=== PATIENT | male | born 1950 | race Caucasian/White ===

== ENCOUNTER 2018-12-08 10:09 | Outpatient (CLI) | payer MEDICARE, BC, SELFPAY ==
[2018-12-08 13:01] LABS: Anion Gap 12.7 mmol/L (3-11); BUN 16 mg/dL (7-18); CO2 26.3 mmol/L (21.0-32.0); CREATININE 0.77 mg/dL (0.70-1.30); Calcium 9.2 mg/dL (8.5-10.1); Chloride 100 mmol/L (98-107); Glucose 109 mg/dL (70-100); Potassium 4.3 mmol/L (3.5-5.1); Sodium 139 mmol/L (136-145)
[2018-12-09 10:17] LABS: PSA, Screening 1.3 ng/ml (0-4.5)
== END 2018-12-08 10:29 ==
PROVIDERS: PCP Emergency Medicine; Visit Provider Emergency Medicine
DX: I10 Essential (primary) hypertension (principal); Z12.5 Encounter for screening for malignant neoplasm of prostate
CPT/HCPCS: 36415; 80048; 84153

== ENCOUNTER 2019-04-14 09:43 | Outpatient (CLI) | payer MEDICARE, BC, SELFPAY ==
[2019-04-14 11:15] LABS: HCT 43.5 % (40.0-50.0); Mean Corp. HGB Concentration 34.5 g/dL (32.0-36.0); Mean Corpuscular Hemoglobin 30.5 pg (27.0-33.0); Mean Corpuscular Volume 88.4 fL (80-95); Mean Platelet Volume 11.1 fL (8.0-11.0); Platelet Count 249 x1000/uL (130-400); RBC 4.92 m/cumm (4.50-6.00); RBC Distribution Width 13.4 % (11.8-14.1); White Blood Cell Count 4.97 k/cumm (4.4-10.8)
[2019-04-14 11:44] LABS: ALT 37 U/L (16-63); AST 24 U/L (15-37); Albumin 3.9 g/dL (3.4-5.0); Alkaline Phosphatase 54 U/L (46-116); Anion Gap 10.7 mmol/L (3-11); BUN 23 mg/dL (7-18); Bilirubin, Total 0.5 mg/dL (0.2-1.0); CO2 27.3 mmol/L (21.0-32.0); CREATININE 0.87 mg/dL (0.70-1.30); Calcium 9.9 mg/dL (8.5-10.1); Calculated LDL 118 mg/dL; Chloride 101 mmol/L (98-107); Cholesterol 198 mg/dL (50-200); Glucose 115 mg/dL (70-100); HDL Cholesterol 70 mg/dL (40-60); Potassium 4.3 mmol/L (3.5-5.1); Sodium 139 mmol/L (136-145); TSH 2.41 uIU/mL (0.36-3.74); Total Protein 8.3 g/dL (6.4-8.2); Triglyceride 50 mg/dL (30-150)
[2019-04-15 11:34] LABS: Hepatitis C Ab w Rflx HCV PCR Negative (NEGAT)
== END 2019-04-14 10:03 ==
PROVIDERS: PCP Emergency Medicine; Visit Provider Emergency Medicine
DX: E03.9 Hypothyroidism, unspecified (principal); R53.83 Other fatigue; K57.32 Diverticulitis of large intestine without perforation or abscess without bleeding; Z11.59 Encounter for screening for other viral diseases
CPT/HCPCS: 36415; 80053; 80061; 85027; 86803; 84443

== ENCOUNTER 2019-04-19 01:29 | Outpatient (CLI) | payer MEDICARE, BC, SELFPAY ==
--- NOTE | 2019-04-19 06:39 | DI.US_ITS ---
EXAM: US AAA SCREENING CLINICAL HISTORY: SCREENING FOR AAA, Z13.6 TECHNIQUE: Ultrasound performed using standard protocol. COMPARISON: No exams were available for comparison FINDINGS: The proximal aorta measures 2.8 cm in diameter. No aneurysm is seen. The proximal iliac arteries a lso appear normal in diameter. IMPRESSION: No evidence of abdominal aortic aneurysm.
== END 2019-04-19 01:49 ==
PROVIDERS: PCP Emergency Medicine; Visit Provider Emergency Medicine
DX: Z13.6 Encounter for screening for cardiovascular disorders (principal)
CPT/HCPCS: 76706

== ENCOUNTER 2020-04-28 11:09 | Outpatient (REF) | payer MEDICARE, BC, SELFPAY ==
[2020-04-28 13:48] LABS: Anion Gap 10.3 mmol/L (3-11); BUN 19 mg/dL (7-18); CO2 26.7 mmol/L (21.0-32.0); CREATININE 0.79 mg/dL (0.70-1.30); Calcium 8.7 mg/dL (8.5-10.1); Chloride 100 mmol/L (98-107); Glucose 108 mg/dL (74-106); Potassium 4.2 mmol/L (3.5-5.1); Sodium 137 mmol/L (136-145)
== END 2020-04-28 11:29 ==
LOC: LBN 11:09
PROVIDERS: PCP Emergency Medicine; Visit Provider Emergency Medicine
DX: I10 Essential (primary) hypertension (principal)
CPT/HCPCS: 80048

== ENCOUNTER 2021-05-02 03:36 | Outpatient (CLI) | payer MEDICARE, BC, SELFPAY ==
[2021-05-02 08:27] LABS: Anion Gap 9.3 mmol/L (3-11); BUN 17 mg/dL (7-18); CO2 28.7 mmol/L (21.0-32.0); CREATININE 0.8 mg/dL (0.70-1.30); Calcium 8.7 mg/dL (8.5-10.1); Calculated LDL 127 mg/dL (<100); Chloride 99 mmol/L (98-107); Cholesterol 206 mg/dL (<200); Glucose 121 mg/dL (74-106); HDL Cholesterol 70 mg/dL (40-60); Potassium 4.2 mmol/L (3.5-5.1); Sodium 137 mmol/L (136-145); Triglyceride 48 mg/dL (<150)
== END 2021-05-02 03:37 | disposition home or self-care (01) ==
LOC: LBO 03:36
PROVIDERS: PCP Emergency Medicine; Visit Provider Emergency Medicine
DX: I10 Essential (primary) hypertension (principal)
CPT/HCPCS: 36415; 80048; 80061

== ENCOUNTER 2021-05-14 02:30 | Outpatient (CLI) | payer MEDICARE, BC, SELFPAY ==
[2021-05-14 11:09] LABS: Hemoglobin A1C 5.9 % (<5.7)
== END 2021-05-14 02:31 | disposition home or self-care (01) ==
LOC: LBO 02:31
PROVIDERS: PCP Emergency Medicine; Visit Provider Emergency Medicine
DX: R73.9 Hyperglycemia, unspecified (principal)
CPT/HCPCS: 36415; 83036

== ENCOUNTER → 2022-05-13 02:27 | Outpatient (CLI) | payer MEDICARE, SELFPAY ==
--- NOTE | 2022-05-13 07:15 | DI.RAD_ITS ---
Exam(s) RF BARIUM SWALLOW EXAM: RF BARIUM SWALLOW CLINICAL HISTORY: halitosis, normal oral exam,r19.6 TECHNIQUE: 2D and realtime digital imaging was performed. CONTRAST MATERIAL: Thick and thin barium and barium tablet were administered. COMPARISON: CR RIGHT RIBS TO INCLUDE CXR from 12/05/2012 CR LEFT SHOULDER COMPLETE from 04/03/2016 FINDINGS: Lateral powertrain engineer view neck shows degenerative disc changes and facet degenerative changes. The PA and l ateral views of the chest show normal heart size and clear lung navarrete. The patient swallowed barium without difficulty. There was no aspiration or laryngeal penetration ob served during the exam. There is a prominent cricopharyngeus muscle impression. There is a tiny Biju ker's diverticulum. There prominent tertiary contractions in the mid to lower esophagus with a few f ocal diverticula. There is a small sliding hiatal hernia. Gastroesophageal reflux was observed to t he level of the upper esophagus. The barium tablet passed into the stomach without delay. No eviden ce of ulceration or stricture. The visualized portions of the stomach and duodenum are unremarkable. Fluoro time 57 seconds IMPRESSION: Prominent tertiary contractions. Sliding hiatal hernia and gastroesophageal reflux. RADIATION DOSE DELIVERED: bebo Diggs=18.3 mGy
[2022-05-13] MEDS: Barium Sulfate 60% W/V 355 ML BTL PO (09:27)
[2022-05-13] MEDS: Barium Sulfate 700 MG TAB PO (09:28)
[2022-05-13] MEDS: Simethicone/Sod Bicarb/Cit Ac, 4 gram PACKET 1 PACKET PO (09:29)
== END ==
PROVIDERS: PCP Family Medicine; Visit Provider Family Medicine
DX: R19.6 Halitosis (principal); K21.9 Gastro-esophageal reflux disease without esophagitis; K44.9 Diaphragmatic hernia without obstruction or gangrene; K22.4 Dyskinesia of esophagus
CPT/HCPCS: 74221

== ENCOUNTER 2022-05-29 02:54 | Outpatient (CLI) | payer MEDICARE, SELFPAY ==
[2022-05-29 11:41] LABS: Abs Immature Grans 0.01 10^3/uL (0.0-0.06); Absolute Basophil Count 0.04 10^3/uL (0.0-0.2); Absolute Eosinophil Count 0.05 10^3/uL (0.0-0.7); Absolute Lymphocyte Count 2.19 10^3/uL (1.2-3.4); Absolute Monocyte Count 0.58 10^3/uL (0.1-0.8); Basophils % 0.8; HCT 43.3 % (40.0-50.0); HGB 14.9 g/dL (13.5-17.5); Immature Grans % 0.2; Lymphocytes % 42.4; MCH 30.4 pg (27.0-33.0); MCHC 34.4 % (32.0-36.0); MCV 88 fL (80-95); MPV 10.3 fL (8.0-11.0); Monocytes % 11.2; Neutrophils % 44.4; Platelet Count 216 10^3/uL (130-400); RDW 12.9 % (11.8-14.1); RDW-SD 42.2 fL; WBC 5.17 10^3/uL (4.4-10.8)
[2022-05-29 12:09] LABS: ALT 33 U/L (16-63); AST 24 U/L (15-37); Albumin 3.5 g/dL (3.4-5.0); Alkaline Phosphatase 57 U/L (46-116); Anion Gap 7.1 mmol/L (3-11); BUN 18 mg/dL (7-18); Bilirubin, Total 0.6 mg/dL (0.2-1.0); CO2 29.9 mmol/L (21.0-32.0); CREATININE 0.8 mg/dL (0.70-1.30); Chloride 100 mmol/L (98-107); Estimated GFR 94.62 (mL/min/1.73m2); Glucose 112 mg/dL (74-106); Potassium 4.4 mmol/L (3.5-5.1); Sodium 137 mmol/L (136-145); Total Protein 8.3 g/dL (6.4-8.2)
== END 2022-05-29 02:55 | disposition home or self-care (01) ==
LOC: LBO 02:54
PROVIDERS: PCP Family Medicine; Visit Provider Family Medicine
DX: R19.6 Halitosis (principal); Z00.00 Encounter for general adult medical examination without abnormal findings
CPT/HCPCS: 36415; 80053; 85025

== ENCOUNTER 2022-06-04 02:13 | Outpatient (CLI) | payer MEDICARE, SELFPAY ==
[2022-06-05 10:49] LABS: Kappa Free Light Chain 4.12 mg/dL (0.33-1.94); Lambda Free Light Chain 0.72 mg/dL (0.57-2.63)
[2022-06-05 13:29] LABS: Albumin 52.5 % (55.8-66.1); Albumin g/dL 4.4 g/dL (3.6-5.2); Comment (See Note); Monoclonal Spike 22.1 % (None Seen); Monoclonal Spike g/dL 1.8 g/dL (None Seen); Total Protein 8.3 g/dL (6.3-8.2)
[2022-06-05 15:17] LABS: Immunotyping, Serum (See Note)
[2022-06-05 15:20] LABS: Albumin, Urine % 19.5 %; Albumin, Urine mg/dL 2 mg/dL; Globulins, Urine % 80.5 %; Globulins, Urine mg/dL 7 mg/dL; Immunotyping, Urine (See Note); Monoclonal Spike, Urine 8.4 %; Monoclonal Spike, Urine mg/dL 1 mg/dL; Total Protein Urine 9 mg/dL (See Note)
== END 2022-06-04 02:14 | disposition home or self-care (01) ==
PROVIDERS: PCP Family Medicine; Visit Provider Family Medicine
DX: R63.8 Other symptoms and signs concerning food and fluid intake (principal)
CPT/HCPCS: 36415; 84156; 84166; 86335; 83883; 84165; 86320

== ENCOUNTER → 2022-07-01 08:54 | Outpatient (BNVA) | payer MEDICARE, SELFPAY | PROVIDERS: PCP Family Medicine; Referring Provider Family Medicine; Visit Provider Physical Therapy Assistant | DX: R19.6 Halitosis (principal); K22.5 Diverticulum of esophagus, acquired | CPT/HCPCS: 99203 ==

== ENCOUNTER 2023-05-23 09:03 | Outpatient (CLI) | payer MEDICARE, SELFPAY ==
[2023-05-23 12:39] LABS: ALT 34 U/L (16-63); AST 25 U/L (15-37); Albumin 3.5 g/dL (3.4-5.0); Alkaline Phosphatase 54 U/L (46-116); Anion Gap 10.4 mmol/L (3-11); BUN 24 mg/dL (7-18); Bilirubin, Total 0.7 mg/dL (0.2-1.0); CO2 28.6 mmol/L (21.0-32.0); Calcium 9.2 mg/dL (8.5-10.1); Calculated LDL 98 mg/dL (<100); Chloride 102 mmol/L (98-107); Cholesterol 172 mg/dL (<200); Estimated GFR 79.97 (mL/min/1.73m2); Glucose 126 mg/dL (74-106); HDL Cholesterol 62 mg/dL (40-60); Potassium 3.7 mmol/L (3.5-5.1); Sodium 141 mmol/L (136-145); Total Protein 8.4 g/dL (6.4-8.2); Triglyceride 63 mg/dL (<150)
== END 2023-05-23 09:04 | disposition home or self-care (01) ==
LOC: LOS 09:03
PROVIDERS: PCP Family Medicine; Referring Provider Family Medicine; Visit Provider Family Medicine
DX: I10 Essential (primary) hypertension (principal); Z13.6 Encounter for screening for cardiovascular disorders; Z00.00 Encounter for general adult medical examination without abnormal findings
CPT/HCPCS: 36415; 80053; 80061

== ENCOUNTER 2023-08-23 13:22 | Emergency (ER) | payer MEDICARE, SELFPAY ==
[2023-08-23 13:30] VITALS: BP 157/109; PULSE 81; RESP 16; TEMP 36.5; O2SAT 97
--- NOTE | 2023-08-23 13:43 | ED.GENADUL_ITS ---
Discharge Plan Disposition Patient Disposition: Home Discharge Details Clinical Impression: Dog bite of buttock Primary Care Provider: Karrei Castillo ED Provider: Colin Paige Home Meds and New Rx's Prescriptions: New amoxicillin-pot clavulanate 875-125 mg tablet 1 tab PO Q12H 3 Days Qty: 6 0RF Continued pravastatin 20 mg tablet 20 mg PO DAILY Qty: 90 3RF losartan-hydrochlorothiazide 100-25 mg tablet 1 tab PO DAILY Qty: 90 3RF acetaminophen [Tylenol Extra Strength] 500 MG tablet 1,000 mg PO bid prn ibuprofen 200 MG capsule 200 mg PO PRN Discharge Instructions Instructions: Animal Bite (ED) Additional Instructions: Please continue to monitor for any signs of infection and return immediately for any signs of infection. Please continue to perform wound care Return to the emergency department immediately if you change your mind on rabies prophylaxis or if you find that the dog is not vaccinated. Referrals: Karrie Castillo MD [Primary Care Provider] - None (As needed ) Discharge Data Discharge Date/Time-TO BE ENTERED AT DEPARTURE: 08/23/23 14:11 HPI General Mode of arrival: ambulatory . Date/Time Provider Initiated Documentation: 08/23/23 13:23 . Limitations to Documentation: no limitations . Information obtained by: patient, family and RN notes reviewed . History of Present Illness 72 year old M presents to the emergency department with the chief complaint of dog bit left buttock, described as moderate, Patient started experiencing this hour(s) (1) Patient notes no other symptoms.. Patient did receive the following treatments prior to arrival, none Related Data Home Medications Medication Instructions Recorded Confirmed ibuprofen 200 mg capsule 200 mg PO PRN 12/05/12 08/23/23 acetaminophen 500 mg tablet 1,000 mg PO bid prn 04/05/13 08/23/23 (Tylenol Extra Strength) losartan 100 1 tab PO DAILY #90 tabs 05/23/23 08/23/23 mg-hydrochlorothiazide 25 mg tablet pravastatin 20 mg tablet 20 mg PO DAILY #90 tab-caps 05/23/23 08/23/23 amoxicillin 875 mg-potassium 1 tab PO Q12H 3 days #6 tabs 08/23/23 clavulanate 125 mg tablet Previous Rx's Medication Instructions Recorded losartan 100 1 tab PO DAILY #90 tabs 05/23/23 mg-hydrochlorothiazide 25 mg tablet pravastatin 20 mg tablet 20 mg PO DAILY #90 tab-caps 05/23/23 amoxicillin 875 mg-potassium 1 tab PO Q12H 3 days #6 tabs 08/23/23 clavulanate 125 mg tablet Allergies Allergy/AdvReac Type Severity Reaction Status Date / Time influenza virus vaccine qs AdvReac systemic Verified 08/23/23 13:29 [id number] (36 mos, up) reaction [From Fluarix Quad] General Stated Complaint: AnimalBite SINGH: 4 Review of Systems Musculoskeletal Musculoskeletal: Denies deformity, Denies limited range of motion, Denies muscle cramps and Denies radiating pain into limb Integumentary/Breasts Skin/Breast: Reports as per HPI, Reports skin swelling, Reports unusual bruising and Reports wounds Exam Const General: cooperative, no acute distress and not ill appearing Orientation: alert, awake and oriented x3 HENMT Mouth: moist mucous membranes Resp Effort & Inspection: normal respiratory effort, able to speak in complete sentences and no respiratory distress Cardio Rate: regular rate Rhythm: regular rhythm Back/Spine/Pelvis Pelvis: buttock ecchymosis and other (Dog bite with hematoma to left buttock) Coccyx: other (Dog bite with hematoma to left buttock) Skin General skin exam: no rashes or lesions noted Neuro General: patient alert, patient awake, patient oriented x3, moves all extremities and no focal motor deficits Sensory Exam: no sensory deficits noted Course Vital Signs Vital signs: Vital Signs Temperature 36.5 C 08/23/23 13:30 Pulse 81 08/23/23 13:30 Respiratory Rate 16 08/23/23 13:30 Blood Pressure 157/109 H 08/23/23 13:30 Pulse Oximetry 97 08/23/23 13:30 Temperature 36.5 C 08/23/23 13:30 Temperature Source Temporal Artery Scan 08/23/23 13:30 Pulse 81 08/23/23 13:30 Respiratory Rate 16 08/23/23 13:30 Respiratory Effort Normal, Non-Labored 08/23/23 13:31 Blood Pressure 157/109 H 08/23/23 13:30 Blood Pressure Position Sitting 08/23/23 13:30 Pulse Oximetry 97 08/23/23 13:30 Oxygen Delivery Method Room Air 08/23/23 13:30 Oxygen Flow Rate 0 03/09/24 13:30 Pain Level 3 08/23/23 13:30 Medical Decision Making Patient presenting to the emergency department for chief complaint of dog bite. Patient reports that he was riding his bicycle when to Portuguese Espino started to matilde him 1 biting him on the left buttock. He states that his clothing was intact but does state significant swelling and some puncture wounds noted. Patient states he is not up-to-date on tetanus, states that the insurance agency owner reported that the dogs were domesticated and up-to-date on rabies. Patient denies all other complaints. Patient is ambulatory, has moderate hematoma and dog bite with surrounding ecchymosis to the left buttock on the lower lateral portion. Exam is otherwise noncontributory. Acute wound care was provided, tetanus updated, did discuss risk and benefit of rabies vaccination with patient and patient at this time denied vaccination. Given dog bite will give short after discussion of diagnosis and plan of care patient has no further needs, questions, or concerns and states clear understanding to return to the emergency department for any worsening symptoms. Course of antibiotics and patient to monitor for further signs of infection. This documentation was generated using [employer] dictation system, please disregard any oddities of phrase or misspellings. Quality:SDOH Health Related Social Needs: No Data to Display PFSH All Active Problems Dog bite of buttock (Acute) Monoclonal gammopathy of undetermined significance (Chronic ~05/2022) negative bone marrow biopsy and PET scan; found on elev total protein on CMP; planned hematology eval every 5 years per patient. Hyperlipemia, mixed (Chronic) Generalized osteoarthrosis (Acute) left knee, fingers Essential hypertension (Chronic 04/02/13) Benign prostatic hyperplasia (Chronic) 2x/nocturia Medical History Zenkers diverticulum Diverticulitis of colon (without mention of hemorrhage) (05/15/06) pandiverticulosis on colonoscopy 2016 [place] Surgical History S/P knee replacement S/P cataract extraction H/O inguinal hernia repair (09/16/17) Family History Mother , age 89 No problems noted. Father , age 95 Essential hypertension Stroke Sister No problems noted. Sister , age 70; organ failure Breast cancer Brother No problems noted. Brother No problems noted. Brother No problems noted. Son No problems noted. Maternal Grandfather , age 85 No problems noted. Paternal Grandfather , age 65 No problems noted. Maternal Grandmother , age 92 No problems noted. Paternal Grandmother , age 95 No problems noted. Social History Smoking/Tobacco Use Status: Former Tobacco Use tobacco type: cigarettes Quit Date: 06/16/88 Tobacco: How many years used: 15 Second Hand Exposure: No Smoking risk assessment performed?: Yes Alcohol Intake: current Alcohol Intake frequency: a few times a week Alcohol type: beer and wine Drug use: Never Substance use type: does not use Counseling given: No Counseling provided: none Adopted: No Caregiver/Support person: No Foster care: No Household members: spouse Housing: house Number of Children: 1 number of grandchildren: 0 Education Level: high school Do you need help understanding health information?: Never current occupation: Retired builder Pets and animals: Yes Pets and animals: dog(s) Sexually active: Yes Do you think of yourself as: straight/heterosexual Current gender identity: male What is your relationship status?: How often do you talk on the phone with friends or family?: once per week How often do you get together with friends or relatives?: once per week How often do you attend hoahaoism or yazdanism services?: 1-3 times per year Do you belong to any clubs or organized social groups?: yes Panel score (0-1 are the most socially isolated patients): 2 What type of physical activity do you participate in: bicycling and other Details: Ski Duration: 45-60 minutes/day Frequency: 1-2 times per week Josselin/Worship: Christianity Special josselin needs: No Seatbelt use: always Helmet use: Yes Helmet use: always Drive intox or ride w/intox 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
[2023-08-23] MEDS: Amoxicillin 875/Clav. 125 TAB PO (14:02)
== END 2023-08-23 14:11 | disposition home or self-care (01) ==
LOC: ER 14:05
PROVIDERS: Emergency Provider Nurse Practitioner Family; PCP Family Medicine
DX: S31.825A Open bite of left buttock, initial encounter (principal); W54.0XXA Bitten by dog, initial encounter
CPT/HCPCS: 90715; 99283

== ENCOUNTER 2023-08-26 13:04 | Emergency (ER) | payer MEDICARE, SELFPAY ==
[2023-08-26 13:07] VITALS: BP 198/105; PULSE 61; RESP 16; TEMP 36.7; O2SAT 97
--- NOTE | 2023-08-26 13:25 | W.ED.GENAD ---
Discharge Plan Disposition Patient Disposition: Home Condition: Stable Discharge Details Clinical Impression: Dog bite of buttock Primary Care Provider: Karrie Castillo ED Provider: Lei Silverman Home Meds and New Rx's Prescriptions: Continued pravastatin 20 mg tablet 20 mg PO DAILY Qty: 90 3RF losartan-hydrochlorothiazide 100-25 mg tablet 1 tab PO DAILY Qty: 90 3RF acetaminophen [Tylenol Extra Strength] 500 MG tablet 1,000 mg PO bid prn ibuprofen 200 MG capsule 200 mg PO PRN Discharge Instructions Additional Instructions: Your wound appears well-healing. No signs of infection You should return for 3 more vaccines with the infusion room If you feel more ill, have severe worsening pain or fevers return to the emergency department HPI General Mode of arrival: ambulatory. Date/Time Provider Initiated Documentation: 08/26/23 13:09. Limitations to Documentation: no limitations. Information obtained by: patient. History of Present Illness 72 year old M presents to the emergency department with the chief complaint of dog bite 3 days ago, described as mild, Quality is described as aching, Patient started experiencing this day(s) (3) and it has been constant. No relieving factors improve symptom(s), No exacerbating factors reported . Patient notes no other symptoms.. Patient did receive the following treatments prior to arrival, none Related Data Home Medications Medication Instructions Recorded Confirmed ibuprofen 200 mg capsule 200 mg PO PRN 12/05/12 08/26/23 acetaminophen 500 mg tablet 1,000 mg PO bid prn 04/05/13 08/26/23 (Tylenol Extra Strength) losartan 100 1 tab PO DAILY #90 tabs 05/23/23 08/26/23 mg-hydrochlorothiazide 25 mg tablet pravastatin 20 mg tablet 20 mg PO DAILY #90 tab-caps 05/23/23 08/26/23 Previous Rx's Medication Instructions Recorded losartan 100 1 tab PO DAILY #90 tabs 05/23/23 mg-hydrochlorothiazide 25 mg tablet pravastatin 20 mg tablet 20 mg PO DAILY #90 tab-caps 05/23/23 Allergies Allergy/AdvReac Type Severity Reaction Status Date / Time influenza virus vaccine qs AdvReac systemic Verified 08/26/23 13:11 [id number] (36 mos, up) reaction [From Fluarix Quad] General Stated Complaint: AnimalBite SINGH: 4 Review of Systems All systems reviewed & are unremarkable except as noted in HPI and below Constitutional Constitutional: Denies chills, Denies fever(s) and Denies weakness Cardiovascular Cardiovascular: Denies chest pain and Denies dyspnea Respiratory Respiratory: Denies cough and Denies dyspnea Gastrointestinal Gastrointestinal: Denies abdominal pain, Denies nausea and Denies vomiting Musculoskeletal Musculoskeletal: Denies joint swelling Neurologic Neurologic: Denies weakness Exam Const General: no acute distress Orientation: alert HENMT Head: normal to inspection Ears: external ears normal General nose exam: external nose normal Mouth: moist mucous membranes Eyes General: appearance normal, both eyes and all related structures Neck Neck: normal visual inspection Resp Effort & Inspection: normal respiratory effort and able to speak in complete sentences Cardio Rate: regular rate Skin General skin exam: no rashes or lesions noted Neuro General: patient alert and patient oriented x3 Extrem General: full ROM Psych Mental Status: mental status grossly normal Course Vital Signs Vital signs: Vital Signs Temperature 36.7 C 08/26/23 13:07 Pulse 61 08/26/23 13:07 Respiratory Rate 16 08/26/23 13:07 Blood Pressure 198/105 H 08/26/23 13:07 Pulse Oximetry 97 08/26/23 13:07 Temperature 36.7 C 08/26/23 13:07 Temperature Source Temporal Artery Scan 08/26/23 13:07 Pulse 61 08/26/23 13:07 Respiratory Rate 16 08/26/23 13:07 Blood Pressure 198/105 H 08/26/23 13:07 Pulse Oximetry 97 08/26/23 13:07 Medical Decision Making 72-year-old male comes in after he was informed that the dog that bit him 3 days ago on the left upper thigh area is actually not vaccinated for rabies and cannot reliably be watched per patient. He was seen in the ER and put on Augmentin which he finished, states he feels well. He has several superficial abrasions on the left upper posterior thigh/left lower buttock with some associated bruising around it but no erythema or discharge. He states that when he had the flu and Pneumovax vaccine several years ago he felt unwell, had bodyaches, states he had no issues with the flu vaccine prior to this so suspect he has a Pneumovax allergy or sensitivity, confirmed with pharmacy that it is still safe to give the rabies vaccine. Will give rabies immunoglobulin and start him on the rabies prophylaxis vaccines. He will return to the infusion room for days 3 7 and 14. Return precautions given and patient was given the dates to return to the infusion room for his subsequent 3 vaccines Differential Diagnosis Differential Diagnosis: Dog bite, rabies prophylaxis Medical Records Medical records reviewed: Yes I reviewed the patient's medical records. Quality:[facility] Health Related Social Needs: No Data to Display PFSH All Active Problems (Updated 08/26/23 @ 13:35 by Lei Silverman MD) Dog bite of buttock (Acute) Monoclonal gammopathy of undetermined significance (Chronic ~05/2022) negative bone marrow biopsy and PET scan; found on elev total protein on CMP; planned hematology eval every 5 years per patient. Hyperlipemia, mixed (Chronic) Generalized osteoarthrosis (Acute) left knee, fingers Essential hypertension (Chronic 04/02/13) Benign prostatic hyperplasia (Chronic) 2x/nocturia Medical History Zenkers diverticulum Diverticulitis of colon (without mention of hemorrhage) (05/15/06) pandiverticulosis on colonoscopy 2016 [place] Surgical History S/P knee replacement S/P cataract extraction H/O inguinal hernia repair (09/16/17) Family History Mother , age 89 No problems noted. Father , age 95 Essential hypertension Stroke Sister No problems noted. Sister , age 70; organ failure Breast cancer Brother No problems noted. Brother No problems noted. Brother No problems noted. Son No problems noted. Maternal Grandfather , age 85 No problems noted. Paternal Grandfather , age 65 No problems noted. Maternal Grandmother , age 92 No problems noted. Paternal Grandmother , age 95 No problems noted. Social History Smoking/Tobacco Use Status: Former Tobacco Use tobacco type: cigarettes Quit Date: 06/16/88 Tobacco: How many years used: 15 Second Hand Exposure: No Smoking risk assessment performed?: Yes Alcohol Intake: current Alcohol Intake frequency: a few times a week Alcohol type: beer and wine Drug use: Never Substance use type: does not use Counseling given: No Counseling provided: none Adopted: No Caregiver/Support person: No Foster care: No Household members: spouse Housing: house Number of Children: 1 number of grandchildren: 0 Education Level: high school Do you need help understanding health information?: Never current occupation: Retired builder Pets and animals: Yes Pets and animals: dog(s) Sexually active: Yes Do you think of yourself as: straight/heterosexual Current gender identity: male What is your relationship status?: How often do you talk on the phone with friends or family?: once per week How often do you get together with friends or relatives?: once per week How often do you attend anglican or mormonism services?: 1-3 times per year Do you belong to any clubs or organized social groups?: yes Panel score (0-1 are the most socially isolated patients): 2 What type of physical activity do you participate in: bicycling and other Details: Ski Duration: 45-60 minutes/day Frequency: 1-2 times per week Josselin/Druze: Congregational Special josselin needs: No Seatbelt use: always Helmet use: Yes Helmet use: always Drive intox or ride w/intox trailer tank truck driver: No Working smoke detector in home: Yes Carbon monox detector in home: Yes Firearms in home: Yes Firearms unloaded and locked: Yes Do you feel safe at home: Yes Do you feel safe in your relationship?: Yes Victim of physical abuse: No Victim of emotional abuse: No Victim of sexual abuse: No Would you like helpful sources: No Additional Social history: Enjoys riding, biking, hiking, skiing.
--- NOTE | 2023-08-26 13:33 | NUR.NOTE ---
Faxed to Infusion the schedule for the Rabies Vaccination. Day 3: 08/29/23 Day 7: 09/02/23 Day 14: 09/09/23 Patient given the phone number to Infusion. Schedule sent to Medical Records. Nursing Note:
[2023-08-26] MEDS: Rabies vaccine (PCEC)/PF 2.5 UNITS/ML VIAL IM (14:00)
[2023-08-26] MEDS: Rabies Immune Globulin 1,500 UNIT/5 ML VIAL 1632.94 UNITS IM (14:02)
== END 2023-08-26 14:33 | disposition home or self-care (01) ==
PROVIDERS: Emergency Provider Emergency Medicine; PCP Family Medicine
DX: S31.825A Open bite of left buttock, initial encounter (principal); W54.0XXA Bitten by dog, initial encounter; I10 Essential (primary) hypertension; E78.2 Mixed hyperlipidemia; Z79.899 Other long term (current) drug therapy
CPT/HCPCS: 90375; 90471; 96372; 99284; 90675

== ENCOUNTER 2023-09-09 04:24 | Outpatient (RCR) | payer MEDICARE, SELFPAY ==
[2023-08-29] MEDS: Rabies vaccine (PCEC)/PF 2.5 UNITS/ML VIAL IM (14:06)
[2023-09-02] MEDS: Rabies vaccine (PCEC)/PF 2.5 UNITS/ML VIAL IM (14:00)
[2023-09-09] MEDS: Rabies vaccine (PCEC)/PF 2.5 UNITS/ML VIAL IM (13:01)
== END 2023-09-14 23:59 | disposition home or self-care (01) ==
LOC: INF 04:24
PROVIDERS: PCP Family Medicine; Visit Provider Emergency Medicine
DX: Z29.14 Encounter for prophylactic rabies immune globulin (principal); Z20.3 Contact with and (suspected) exposure to rabies
CPT/HCPCS: 90471; 90675

== ENCOUNTER 2024-05-28 10:00 | Outpatient (CLI) | payer MEDICARE, SELFPAY ==
[2024-05-28 12:33] LABS: ALT 29 U/L (16-63); AST 22 U/L (15-37); Albumin 3.6 g/dL (3.4-5.0); Alkaline Phosphatase 59 U/L (46-116); Anion Gap 9.4 mmol/L (3-11); BUN 21 mg/dL (7-18); CO2 27.6 mmol/L (21.0-32.0); Calcium 9.7 mg/dL (8.5-10.1); Chloride 102 mmol/L (98-107); Estimated GFR 79.47 (mL/min/1.73m2); Glucose 120 mg/dL (74-106); Potassium 3.9 mmol/L (3.5-5.1); Sodium 139 mmol/L (136-145); Total Protein 8.4 g/dL (6.4-8.2)
== END 2024-05-28 10:01 | disposition home or self-care (01) ==
LOC: LOS 10:00
PROVIDERS: PCP Family Medicine; Referring Provider Family Medicine; Visit Provider Family Medicine
DX: Z00.00 Encounter for general adult medical examination without abnormal findings (principal); I10 Essential (primary) hypertension; R19.6 Halitosis; E78.5 Hyperlipidemia, unspecified
CPT/HCPCS: 36415; 80053